=== PATIENT | male | born 1950 | race Caucasian/White ===

== ENCOUNTER 2023-01-05 11:33 | Emergency (ER) | payer MEDICARE, SELFPAY ==
[2023-01-05 11:35] VITALS: BP 160/93; PULSE 84; RESP 20; TEMP 36.2; O2SAT 95; BMI 24.5
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
--- NOTE | 2023-01-05 11:47 | ED.RN ---
Spoke with partner, she will be in approx 30 min.
--- NOTE | 2023-01-05 11:50 | EKG12_ITS ---
Test Reason : ALT MENTAL Blood Pressure : / mmHG Vent. Rate : 065 BPM Atrial Rate : 065 BPM P-R Int : 150 ms QRS Dur : 086 ms QT Int : 418 ms P-R-T Axes : 053 027 197 degrees QTc Int : 434 ms Normal sinus rhythm Possible Left atrial enlargement ST & T wave abnormality, consider inferior ischemia ST & T wave abnormality, consider anterolateral ischemia Abnormal ECG Confirmed by EARNESTINE ALDRICH, MARIANNE ([id number]), fashion editor YESSICA ALVARADO ([id number]) on 01/09/2023 8:24:38 AM Referred By: Confirmed By:MARIANNE COLBY MD
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
--- NOTE | 2023-01-05 11:50 | ED.RN ---
SIGNIFICANT OTHER STATES PATIENT LEFT TO GO TO [facility] AT 0915 THIS AM, WAS TO HAVE ALLERGY SHOTS AFTER. PATIENT DENIES RECOLLECTION OF EVENTS AFTER [facility] APPT.
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
[2023-01-05 12:06] LABS: Bedside Glucose 113 mg/dL (74-106)
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
[2023-01-05 12:10] LABS: Absolute Lymphocyte Count 1.69 X10^3/uL (0.83-4.51); Absolute Neutrophil Count 6.2 X10^3/uL (2.0-7.7); Basophil# 0.09 X10^3/uL; Eosinophil# 0.35 X10^3/uL; Eosinophils% 3.8 % (0-5); Hematocrit 43.8 % (40-54); Hemoglobin 14.8 g/dL (13.0-16.5); Lymphocyte # 1.69 X10^3/ul (0.83-4.51); Lymphocyte % 18.5 % (19-41); Mean Corp Hgb Conc 33.8 g/dL (32-36); Mean Corpuscular Hgb 31.7 pg (27.0-32.0); Mean Corpuscular Volume 93.8 fL (80-94); Mean Platelet Vol. 10.2 fl (6.2-12.0); Monocyte# 0.69 X10^3/uL; Monocyte% 7.6 % (0-10); NRBC Flagged by Analyzer 0 % (0-5); Neutrophil # 6.18 X10^3/uL (2.7-7.7); Neutrophil % 67.7 % (47-70); Platelet Count 207 K/mm3 (150-450); RBC Distribution Width CV 12.5 % (11.6-14.6); RBC Distribution Width SD 43.1 fl (35.1-43.9); Red Blood Count 4.67 M/mm3 (4.6-6.2); White Blood Count 9.1 K/mm3 (4.4-11.0)
[2023-01-05 12:23] LABS: Anion Gap 10 (5-15); BUN 10 mg/dL (7-18); BUN/Creat Ratio 8.9 RATIO (10-20); Calcium,Total 9.6 mg/dL (8.5-10.1); Chloride 100 mmol/L (98-107); Creatinine, Serum 1.12 mg/dL (0.70-1.30); EST Glomerular Filtration Rate 68 mL/min (>60); Est Glom Filt Rate - Afr Amer 83 mL/min (>60); Estimated Creatinine Clearance 62.56 ml/min; Glucose 127 mg/dL (74-106); Sodium Level 131 mmol/L (136-145)
[2023-01-05 12:34] VITALS: BP 111/88; PULSE 66; RESP 20; O2SAT 92
--- NOTE | 2023-01-05 13:15 | RAD_ITS ---
STUDY: X-RAY - RIGHT SHOULDER REASON FOR EXAM: Male, 72 years old. Shoulder pain following a fall. TECHNIQUE: 2 view(s) of the shoulder. COMPARISON: None. FINDINGS: There is moderate degenerative arthrosis of the glenohumeral articulation. There is hypertrophic osteoarthrosis of the acromioclavicular joint with inferior osseous spur formation. Normal acromion. Normal humeral head and visualized proximal humerus. The soft tissue structures are unremarkable. Increased interstitial markings in the right lung suggestive of scarring. RAD/Shoulder min 2 Views IMPRESSION: Degenerative changes of the glenohumeral joint and right acromioclavicular joint. Electronically Signed: Farhan Holt MD at 14:01 EDT ,
[2023-01-05 13:26] VITALS: PULSE 59
[2023-01-05 14:00] VITALS: BP 159/77; PULSE 60; RESP 19; O2SAT 96
== END 2023-01-05 14:28 | disposition home or self-care (01) ==
PROVIDERS: Emergency Provider Emergency Medicine; PCP Family Medicine; Visit Provider Emergency Medicine
DX: R41.82 Altered mental status, unspecified (principal); F17.210 Nicotine dependence, cigarettes, uncomplicated; I10 Essential (primary) hypertension; I25.2 Old myocardial infarction; R94.31 Abnormal electrocardiogram [ECG] [EKG]; M25.511 Pain in right shoulder; Z79.899 Other long term (current) drug therapy
CPT/HCPCS: 70450; 71045; 72125; 73030; 80048; 82962; 85025; 93005; 96360; 99284; J7030; A4216